=== PATIENT | male | born 1965 | race Caucasian/White ===

== ENCOUNTER 2016-11-04 13:57 | Emergency (ER) | payer MEDICARE, MEDICAID ==
[~2016-11-04] VITALS: Ht 167.6 cm; Wt 70.0 kg
[~2016-11-04 13:57] MED LIST: BUSP5 PO; CITA20TA4 PO; CYCL1PAK PO; HYDR-3533 PO; LITH300 PO; PRED10PA PO; QUET100 PO
[2016-11-04 14:04] VITALS: BP 143/77; PULSE 80; RESP 15; TEMP 98.4; O2SAT 100
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
[2016-11-04] MEDS ORDERED: ROBA500T PO (14:54)
[2016-11-04] MEDS ORDERED: methylPREDNISolone SOD SUCC 125 MG/2 ML VIAL IM ONE (15:00)
[2016-11-04] MEDS ORDERED: ORPHENADRINE INJ 60 MG/2 ML AMP IM ONE (15:00)
== END 2016-11-04 15:47 | disposition home or self-care (01) ==
LOC: NEPD 13:57
DX: M54.32 Sciatica, left side (principal); M19.90 Unspecified osteoarthritis, unspecified site; F31.9 Bipolar disorder, unspecified; J44.9 Chronic obstructive pulmonary disease, unspecified; K21.9 Gastro-esophageal reflux disease without esophagitis; I10 Essential (primary) hypertension; Z79.899 Other long term (current) drug therapy
CPT/HCPCS: 96372; 99284; J2360; J2930

== ENCOUNTER 2016-12-10 09:32 | Emergency (ER) | payer MEDICARE, MEDICAID ==
[~2016-12-10] VITALS: Ht 167.6 cm; Wt 73.0 kg
[~2016-12-10 09:32] MED LIST changes: +ROBA500T PO
[2016-12-10 09:34] VITALS: BP 149/74; PULSE 113; RESP 22; TEMP 97.6; O2SAT 100
--- NOTE | 2016-12-10 10:35 | RADRPT ---
EXAM DATE/TIME: 12/10/2016 10:11 [facility] COMPARISON: No previous studies available for comparison. INDICATIONS : Pain post fall. MEDICAL HISTORY : Arthritis. Previously broken wrist. SURGICAL HISTORY : None. ENCOUNTER: Initial ACUITY: 2 days PAIN SCORE: 6/10 LOCATION: Right Wrist. FINDINGS: Three view examination of the right wrist demonstrates no soft tissue swelling, dislocation, or fract ure. The carpal bones are in normal alignment. The joint spaces are maintained. Bony mineralizatio n is normal. CONCLUSION: Unremarkable examination of the right wrist. Geoff Howell MD on December 10, 2016 at 10:34 Board Certified Radiologist. This report was verified electronically.
--- NOTE | 2016-12-10 10:47 | RADRPT ---
EXAM DATE/TIME: 12/10/2016 10:06 [facility] COMPARISON: No previous studies available for comparison. INDICATIONS : Fall with back pain. RADIATION DOSE: 18.91 CTDIvol (mGy) MEDICAL HISTORY : Hernia, hiatal. SURGICAL HISTORY : Hernia, lumbar. ENCOUNTER: Initial ACUITY: 2 days PAIN SCALE: 6/10 LOCATION: Bilateral back pain. TECHNIQUE: Volumetric scanning of the lumbar spine was performed. Multiplanar reconstructions in the sagittal, coronal and oblique axial planes were performed. Using automated exposure control and adjustment of the mA and/or kV according to patient size, radiation dose was kept as low as reasonably achievable t o obtain optimal diagnostic quality images. DICOM format image data is available electronically for review and comparison. FINDINGS: VERTEBRAE: Lumbar vertebral bodies are normal in height. There are transpedicular screws seen at the left L5 and S1 levels. There is prominent sclerosis of the inferior aspect of the L5 vertebral body and the supe rior aspect of S1. There is a stabilization device at the L5-S1 disc level. There is sclerosis seen a t the anterior medial iliac bones bilaterally adjacent to the sacroiliac joints. There is also some s clerosis in the anterior upper left sacrum adjacent to the anterior aspect of the left sacroiliac trenton nt. ALIGNMENT: No evidence of subluxation. T12-L1: The thecal sac has a normal diameter. No evidence of disc bulge or protrusion. The neural foramina are patent bilaterally. L1-L2: The thecal sac has a normal diameter. No evidence of disc bulge or protrusion. The neural foramina are patent bilaterally. L2-L3: The thecal sac has a normal diameter. No evidence of disc bulge or protrusion. The neural foramina are patent bilaterally. L3-L4: The thecal sac has a normal diameter. No evidence of disc bulge or protrusion. The neural foramina are patent bilaterally. L4-L5: There is minimal disc bulge without significant stenosis. The thecal sac has a normal diameter. The neural foramina are patent bilaterally. L5-S1: Again noted are the postoperative change at the L5-S1 level. There is bulging of the disc and promine nt osteophytic ridging especially centrally causing an impression on the anterior aspect of the theca l sac. There is increased density seen at the left lateral epidural space likely related to scarring. This abuts the left L5 and S1 nerve roots. The patient is status post left hemilaminectomy. CONCLUSION: 1. Chronic degenerative and postoperative changes the L5-S1 level with mild disc bulge and moderate o steophytic ridging causing a mild impression on the thecal sac. There also appears to be left lateral epidural scarring abutting the left L5 and S1 nerve roots. 2. Minimal bulging at the L4-L5 level. Geoff Howell MD on December 10, 2016 at 10:37 Board Certified Radiologist. This report was verified electronically.
--- NOTE | 2016-12-10 10:53 | PD ---
HPI Chief Complaint: Pain: Acute or Chronic Time Seen by Provider: 09:45 Travel History International Travel<30 days: No Contact w/Intl Traveler<30days: No Traveled to known affect area: No History of Present Illness HPI 31-year-old male with history of chronic low back pain and Parkinson's disease comes to the emergency room for evaluation of low back pain and right wrist pain after trip and fall 2 days ago. Patient states he was stepping over his grandson he was standing on 3 steps and he missed the first of 3 steps, twisting to the right and falling on his buttocks. He did hit his head but denies loss of consciousness, headache, nausea, vomiting, or confusion. States since then he has had mild wrist pain but does not believe it is broken as well as severe midline lumbar pain. Patient has history of back surgery 15 years ago and revision 2 years ago. States he has had acute exacerbation of pain since fall. It radiates into his right lower extremity. He does not see pain management. He has not been taking anything for symptoms. He denies saddle anesthesia, lower extremity paresthesias, loss of bowel or bladder control. PFSH Past Medical History Arthritis: Yes Bipolar Disorder: Yes Heart Rhythm Problems: No Cancer: No Cardiovascular Problems: No High Cholesterol: No Congestive Heart Failure: No COPD: Yes Cerebrovascular Accident: No Diabetes: No Diminished Hearing: No Endocrine: No Gastrointestinal Disorders: Yes (gerd) GERD: Yes Genitourinary: Yes Hepatitis: No Hiatal Hernia: Yes Hypertension: Yes Immune Disorder: No Implanted Vascular Access Dvce: Yes Kidney Stones: Yes Musculoskeletal: Yes (back pain, arthritis) Neurologic: Yes (tremors, numbness l leg) Psychiatric: Yes (BIPOLAR) Reproductive: No Respiratory: Yes (copd severe) Seizures: No Thyroid Disease: No Ulcer: No Past Surgical History Abdominal Surgery: Yes (hernia surgery) AICD: No Body Medical Devices: SPINAL HARDWARE Cardiac Surgery: No Ear Surgery: No Endocrine Surgery: No Eye Surgery: No Genitourinary Surgery: No Joint Replacement: No Neurologic Surgery: Yes (10/27/14 L5-S1 LAMI FUSION WITH HARDWARE) Oral Surgery: No Pacemaker: No Thoracic Surgery: No Other Surgery: Yes (10/27/14 L5-S1 LAMI FUSION WITH HARDWARE) Social History Alcohol Use: Yes (occ/monthly) Tobacco Use: No Substance Use: No Allergies-Medications (Allergen,Severity, Reaction): Coded Allergies: gabapentin (Unverified Adverse Reaction, Severe, Hallucinations, 12/10/16) *MDRO Multi-Drug Resistant Organism (Verified Adverse Reaction, Unknown, 12/10/16) MRSA left knee wound 2008 MRSA PCR Screen negative 10/28/14 and 10/30/14. Cleared by Infection Control. Reported Meds & Prescriptions Reported Meds & Active Scripts Active Ibuprofen 600 Mg Tab 600 Mg PO Q8H PRN Robaxin (Methocarbamol) 750 Mg Tab 750 Mg PO Q8HR Robaxin (Methocarbamol) 500 Mg Tab 500 Mg PO TID Cyclobenzaprinepax 10 & 0.0375-5 mg & % ([id number]) 10 Mg Tab 10 Mg PO TID Sterapred Ds 12 Day Pack (Prednisone) 10 Mg Jeffery 10 Mg PO DIRECTED USE DIRECTED Lortab 5 mg/325 mg (Hydrocodone/Acetaminophen 5 mg/325 mg) 1 Tab 1-2 Tab PO Q6H PRN Reported Quetiapine Fumarate 100 Mg Tab 200 Mg PO HS Buspar 5 Mg Tab (Buspirone HCl) 5 Mg Tab 5 Mg PO TID Citalopram Hydrobromide 20 Mg Tab 20 Mg PO DAILY Lithotabs ([place] Carbonate) 300 Mg Tab 600 Mg PO DAILY Review of Systems Except as stated in HPI: all other systems reviewed are Neg Physical Exam Narrative GENERAL: Well-nourished, well-developed male in no acute distress. Afebrile. Ambulatory with a cane. SKIN: Focused skin assessment warm/dry. No erythema or ecchymosis. HEAD: Normocephalic. EYES: No scleral icterus. No injection or drainage. NECK: Supple, trachea midline. No JVD or lymphadenopathy. CARDIOVASCULAR: Regular rate and rhythm without murmurs, gallops, or rubs. RESPIRATORY: Breath sounds equal bilaterally. No accessory muscle use. MUSCULOSKELETAL: No cyanosis. Mild edema of the right wrist. Full range of motion of the wrist. 2+ radial pulse. Radial, ulnar, and median nerves intact. Tenderness to palpation of the radial styloid. BACK: Moderate to severe midline tenderness of the lumbar spine. Surgical scar over the lumbar region. No obvious deformity. No CVA tenderness. Data Data Last Documented VS Vital Signs Date Time Temp Pulse Resp B/P (MAP) Pulse Ox O2 Delivery O2 Flow Rate FiO2 12/10/16 11:19 12/10/16 09:34 97.6 113 22 100 Room Air Orders Orders Ct Lumb Spine W/O Contrast (12/10/16 ) Wrist, Complete ([id number]) (12/10/16 ) Splint Or Brace Apply/Monitor (12/10/16 10:53) Ed Discharge Order (12/10/16 10:54) Cockup Hand Splint (12/10/16 ) MDM Medical Decision Making Medical Screen Exam Complete: Yes Emergency Medical Condition: Yes Medical Record Reviewed: Yes Differential Diagnosis Back strain, lumbar spondylosis, degenerative disc disease, disc prolapse, acute on chronic pain, sprain, fracture Narrative Course 51-year-old male with a history of chronic back pain presents to the emergency room for evaluation after trip and fall 2 days ago. Patient was stepping over his grandson on 3 stairs when he lost his balance and fell forward. Upon falling he twisted his back and then landed on his buttocks. He put his right arm out to catch his fall. Since then he has had low back pain and right wrist pain. No focal neurological deficits. There is midline tenderness over the surgical scar in the lumbar spine. Patient has extensive back pathology and had surgery 2 years ago. No significant red flag symptoms or focal neurological deficits. He does not believe his right wrist is broken. It is neurovascularly intact with 2+ radial pulse. Radial, ulnar, and median nerves intact. X-ray of the right wrist is negative. This is wrist sprain. CT of the lumbar spine shows multiple chronic findings but no acute or worsening findings. Patient was told to follow-up with his neurosurgeon for continuation of care. He was discharged with prescriptions for ibuprofen and Robaxin and placed in Velcro wrist splint. Told to return for worsening symptoms. He understands and agrees to plan. Initial vital signs show heart rate of 113. On exam, patient had normal rate. Diagnosis Primary Impression: Right wrist sprain Qualified Codes: S63.501A - Unspecified sprain of right wrist, initial encounter Additional Impression: Lumbar strain Qualified Codes: S39.012A - Strain of muscle, fascia and tendon of lower back , initial encounter Referrals: Primary Care Physician Additional Instructions: Rest and drink plenty of fluids. Take Robaxin as directed, as needed for pain. Take ibuprofen with food as directed, as needed for pain. Apply ice to the affected area for 20 minutes at a time, as needed for pain and swelling. Follow-up with a primary care physician. Return to the emergency room for worsening symptoms. Scripts Ibuprofen (Ibuprofen) 600 Mg Tab 600 MG PO Q8H Y for PAIN, #15 TAB 0 Refills Prov: Celia White DO 12/10/16 Methocarbamol (Robaxin) 750 Mg Tab 750 MG PO Q8HR for Muscle Spasm, #15 TAB 0 Refills Prov: Celia White DO 12/10/16 Stephanie Winslow Dec 10, 2016 10:53
[2016-12-10] MEDS ORDERED: ROBA750T PO (10:54)
[2016-12-10] MEDS ORDERED: IBUP-232 PO (10:54)
== END 2016-12-10 11:22 | disposition home or self-care (01) ==
LOC: NEPK 09:32
DX: S39.012A Strain of muscle, fascia and tendon of lower back, initial encounter (principal); S63.501A Unspecified sprain of right wrist, initial encounter; W01.0XXA Fall on same level from slipping, tripping and stumbling without subsequent striking against object, initial encounter; Y92.019 Unspecified place in single-family (private) house as the place of occurrence of the external cause; G20 Parkinson's disease; I10 Essential (primary) hypertension; J44.9 Chronic obstructive pulmonary disease, unspecified; F31.9 Bipolar disorder, unspecified; K21.9 Gastro-esophageal reflux disease without esophagitis
CPT/HCPCS: 72131; 73110; 99284; L3908